=== PATIENT | female | born 1965 | race Caucasian/White ===

== ENCOUNTER 2016-08-03 09:16 | Inpatient (IN) | payer OTHER ==
[~2016-08-03] VITALS: Ht 165.1 cm; Wt 64.6 kg
[2016-08-03 11:05] LABS: BASOPHIL % 0.2 % (0-2); PLATELET COUNT 209 x10^3mcL (130-400); RED CELL DISTRIBUTION WIDTH 13.3 % (11.5-14.5)
[2016-08-03 11:29] LABS: CARBON DIOXIDE 28.7 mmol/L (21-32); CHLORIDE SERUM 105 mmol/L (98-107); CREATININE SERUM 0.8 mg/dL (0.6-1.0); GFR1 > 60 mL/min; GLUCOSE SERUM 102 mg/dL (74-106); POTASSIUM SERUM 3.8 mmol/L (3.5-5.1); SODIUM SERUM 140 mmol/L (136-145)
[2016-08-03 11:32] LABS: ALBUMIN 4.1 g/dL (3.4-5.0); ALKALINE PHOSPHATASE 71 U/L (46-116); ALT/SGPT 103 U/L (14-59); AST/SGOT 65 U/L (15-37); BILIRUBIN TOTAL 0.51 mg/dL (0.20-1.00); LIPASE 150 IU/L (73-393); TOTAL PROTEIN, SERUM 8.2 g/dL (6.4-8.2)
[2016-08-03] MEDS ORDERED: VENLAFAXINE150 M1 (11:41)
[2016-08-03] MEDS ORDERED: AMBIEN5 MG PO (11:42)
[2016-08-03 14:39] VITALS: BP 133/100
[2016-08-03 18:39] VITALS: BP 148/97
[2016-08-04 06:01] VITALS: BP 139/87
[2016-08-04 06:22] LABS: CALCIUM 8.4 mg/dL (8.5-10.1); CARBON DIOXIDE 27.7 mmol/L (21-32); CHLORIDE SERUM 107 mmol/L (98-107); CREATININE SERUM 0.8 mg/dL (0.6-1.0); GFR1 > 60 mL/min; GLUCOSE SERUM 103 mg/dL (74-106); SODIUM SERUM 142 mmol/L (136-145)
[2016-08-04 08:28] LABS: PLATELET COUNT 146 x10^3mcL (130-400); RED CELL DISTRIBUTION WIDTH 12.2 % (11.5-14.5)
[2016-08-04 08:37] LABS: BASOPHIL % 4.4 % (0-2)
[2016-08-04 10:16] VITALS: BP 143/99
[2016-08-04 12:25] LABS: microscopic required? YES; urine erythrocyte TRACE (NEGATIVE)
[2016-08-04 18:39] VITALS: BP 150/99
[2016-08-04 21:20] VITALS: BP 149/57
[2016-08-05] VITALS (7 sets, daily range): BP systolic 144–156; BP diastolic 86–103
[2016-08-05] MEDS ORDERED: KEFLEX500 M1 PO (13:34)
[2016-08-06 05:32] VITALS: BP 140/97
[2016-08-06 06:36] LABS: BASOPHIL % 0.2 % (0-2); PLATELET COUNT 195 x10^3mcL (130-400)
[2016-08-06 06:44] LABS: ALBUMIN 3.7 g/dL (3.4-5.0); ALKALINE PHOSPHATASE 56 U/L (46-116); ALT/SGPT 61 U/L (14-59); AST/SGOT 27 U/L (15-37); BILIRUBIN TOTAL 0.53 mg/dL (0.20-1.00); CALCIUM 8.5 mg/dL (8.5-10.1); CARBON DIOXIDE 27.4 mmol/L (21-32); CHLORIDE SERUM 110 mmol/L (98-107); CREATININE SERUM 0.9 mg/dL (0.6-1.0); GFR1 > 60 mL/min; GLUCOSE SERUM 136 mg/dL (74-106); SODIUM SERUM 150 mmol/L (136-145); TOTAL PROTEIN, SERUM 7.4 g/dL (6.4-8.2)
[2016-08-06 06:46] LABS: POTASSIUM SERUM 2.4 mmol/L (3.5-5.1)
[2016-08-06 10:10] VITALS: BP 141/82
[2016-08-06 15:40] LABS: CALCIUM 8.2 mg/dL (8.5-10.1); CARBON DIOXIDE 29.2 mmol/L (21-32); CHLORIDE SERUM 111 mmol/L (98-107); CREATININE SERUM 0.8 mg/dL (0.6-1.0); GFR1 > 60 mL/min; GLUCOSE SERUM 123 mg/dL (74-106); SODIUM SERUM 148 mmol/L (136-145)
[2016-08-06 15:43] LABS: POTASSIUM SERUM 2.4 mmol/L (3.5-5.1)
[2016-08-06 18:52] VITALS: BP 135/90
[2016-08-06 22:09] VITALS: BP 168/96
[2016-08-07 00:20] VITALS: BP 144/93
[2016-08-07 05:48] VITALS: BP 167/101
[2016-08-07 06:38] LABS: CALCIUM 8.6 mg/dL (8.5-10.1); CHLORIDE SERUM 105 mmol/L (98-107); CREATININE SERUM 0.7 mg/dL (0.6-1.0); GFR1 > 60 mL/min; GLUCOSE SERUM 126 mg/dL (74-106); MAGNESIUM 1.8 mg/dL (1.8-2.4); POTASSIUM SERUM 3.3 mmol/L (3.5-5.1); SODIUM SERUM 141 mmol/L (136-145)
[2016-08-07 06:51] VITALS: BP 156/89
[2016-08-07 12:57] VITALS: BP 156/89
[2016-08-07] MEDS ORDERED: LACTULOSE10 GM/152 PO (13:25)
[2016-08-07] MEDS ORDERED: SEN PO (13:25)
[2016-08-07] MEDS ORDERED: METOPROLOL SUCC50 M2 PO (13:25)
== END 2016-08-07 14:21 | disposition home or self-care (01) | DRG 247 ==
LOC: ED 09:16 → MU 12:12
PROVIDERS: Emergency Medicine; Internal Medicine Gastroenterology; ADMIT Internal Medicine Pulmonary Disease
PROC: 0DBN8ZZ Excision of Sigmoid Colon, Via Natural or Artificial Opening Endoscopic (ICD-10-PCS; principal; 2016-08-06 08:00)
DX: K56.41 Fecal impaction (principal); F79 Unspecified intellectual disabilities
CPT/HCPCS: 45378; J0696; J1200; J1610; J2060; J2250; J2310; J2405; J2765; J3010; J3480; J3490; J7030; J7042; Q0092

== ENCOUNTER 2017-03-02 16:13 | Inpatient (IN) | payer OTHER ==
[~2017-03-02] VITALS: Ht 165.1 cm; Wt 67.1 kg
[~2017-03-02 16:13] MED LIST: AMBIEN5 MG PO; KEFLEX500 M1 PO; LACTULOSE10 GM/152 PO; METOPROLOL SUCC50 M2 PO; SEN PO; VENLAFAXINE150 M1
[2017-03-02 18:34] LABS: BASOPHIL % 0.2 % (0-2); PLATELET COUNT 177 x10^3mcL (130-400); RED CELL DISTRIBUTION WIDTH 12.5 % (11.5-14.5)
[2017-03-02 18:47] LABS: CALCIUM 8.7 mg/dL (8.5-10.1); CARBON DIOXIDE 29.6 mmol/L (21-32); CHLORIDE SERUM 104 mmol/L (98-107); CREATININE SERUM 0.9 mg/dL (0.6-1.0); GFR1 > 60 mL/min; GLUCOSE SERUM 122 mg/dL (74-106); POTASSIUM SERUM 3.6 mmol/L (3.5-5.1); SODIUM SERUM 138 mmol/L (136-145)
[2017-03-02 18:51] LABS: ALBUMIN 3.9 g/dL (3.4-5.0); ALKALINE PHOSPHATASE 59 U/L (46-116); ALT/SGPT 33 U/L (14-59); AST/SGOT 22 U/L (15-37); BILIRUBIN TOTAL 0.24 mg/dL (0.20-1.00); LIPASE 170 IU/L (73-393); TOTAL PROTEIN, SERUM 8.2 g/dL (6.4-8.2)
[2017-03-02] MEDS ORDERED: SENNA8.6 M2 PO (20:35)
[2017-03-02] MEDS ORDERED: VENLAFAXINE HY150 MG PO (20:35)
[2017-03-02] MEDS ORDERED: LACTULOSE10 GM/152 PO (20:36)
[2017-03-02] MEDS ORDERED: MAPAP500 M2 PO (20:36)
[2017-03-02] MEDS ORDERED: ZESTRIL5 MG PO (20:37)
[2017-03-02 21:20] VITALS: BP 132/72
[2017-03-02 22:30] VITALS: BP 103/67
[2017-03-02 23:55] VITALS: BP 132/72
[2017-03-03 05:00] LABS: microscopic required? YES; urine erythrocyte NEGATIVE (NEGATIVE)
[2017-03-03 06:06] VITALS: BP 130/83
[2017-03-03 06:11] LABS: BASOPHIL % 0.1 % (0-2); PLATELET COUNT 138 x10^3mcL (130-400); RED CELL DISTRIBUTION WIDTH 12.9 % (11.5-14.5)
[2017-03-03 06:25] LABS: CALCIUM 8.1 mg/dL (8.5-10.1); CARBON DIOXIDE 26.5 mmol/L (21-32); CHLORIDE SERUM 108 mmol/L (98-107); CREATININE SERUM 0.8 mg/dL (0.6-1.0); GFR1 > 60 mL/min; GLUCOSE SERUM 90 mg/dL (74-106); POTASSIUM SERUM 3.6 mmol/L (3.5-5.1); SODIUM SERUM 142 mmol/L (136-145)
[2017-03-03 06:32] LABS: T3 TOTAL 1.2 ng/mL
[2017-03-03 06:56] LABS: FREE T4 1.17 ng/dL (0.76-1.46); FREE THYROXINE INDEX 3.6 ug/dL (1.4-4.5); T4(THYROXINE) 9.8 ug/dL (4.7-13.3)
[2017-03-03 09:29] VITALS: BP 149/86
[2017-03-03 17:27] VITALS: BP 143/88
[2017-03-03 21:42] VITALS: BP 128/87
[2017-03-04 09:27] VITALS: BP 144/93
[2017-03-04 13:11] VITALS: BP 115/43
[2017-03-04 18:20] VITALS: BP 137/90
[2017-03-04 21:26] VITALS: BP 140/91
[2017-03-05 05:46] VITALS: BP 109/71
[2017-03-05 06:08] LABS: ALBUMIN 3.5 g/dL (3.4-5.0); ALKALINE PHOSPHATASE 48 U/L (46-116); ALT/SGPT 30 U/L (14-59); AST/SGOT 16 U/L (15-37); BILIRUBIN TOTAL 0.56 mg/dL (0.20-1.00); CALCIUM 8.5 mg/dL (8.5-10.1); CARBON DIOXIDE 29.5 mmol/L (21-32); CHLORIDE SERUM 107 mmol/L (98-107); CREATININE SERUM 0.8 mg/dL (0.6-1.0); GFR1 > 60 mL/min; GLUCOSE SERUM 93 mg/dL (74-106); POTASSIUM SERUM 4.1 mmol/L (3.5-5.1); SODIUM SERUM 140 mmol/L (136-145); TOTAL PROTEIN, SERUM 7.3 g/dL (6.4-8.2)
[2017-03-05 06:18] LABS: BASOPHIL % 0.2 % (0-2); PLATELET COUNT 159 x10^3mcL (130-400); RED CELL DISTRIBUTION WIDTH 12.3 % (11.5-14.5)
[2017-03-05 09:59] VITALS: BP 132/85
[2017-03-05 18:16] VITALS: BP 125/87
[2017-03-05 21:43] VITALS: BP 135/83
[2017-03-06 05:51] VITALS: BP 114/63
[2017-03-06 07:11] LABS: BASOPHIL % 0.2 % (0-2); PLATELET COUNT 154 x10^3mcL (130-400); RED CELL DISTRIBUTION WIDTH 12.3 % (11.5-14.5)
[2017-03-06 07:28] LABS: CALCIUM 8.6 mg/dL (8.5-10.1); CARBON DIOXIDE 26.4 mmol/L (21-32); CHLORIDE SERUM 105 mmol/L (98-107); CREATININE SERUM 0.8 mg/dL (0.6-1.0); GFR1 > 60 mL/min; GLUCOSE SERUM 83 mg/dL (74-106); POTASSIUM SERUM 3.7 mmol/L (3.5-5.1); SODIUM SERUM 139 mmol/L (136-145)
[2017-03-06 11:25] VITALS: BP 137/79
[2017-03-06 17:04] VITALS: BP 111/80
[2017-03-06 21:27] VITALS: BP 111/70
[2017-03-07 05:15] VITALS: BP 105/63
[2017-03-07 09:53] VITALS: BP 112/76
[2017-03-07 14:22] VITALS: BP 114/77
[2017-03-07 17:43] VITALS: BP 130/80
[2017-03-07 21:01] VITALS: BP 112/71
[2017-03-08 06:04] VITALS: BP 103/62
[2017-03-08 07:02] LABS: PLATELET COUNT 165 x10^3mcL (130-400); RED CELL DISTRIBUTION WIDTH 12.7 % (11.5-14.5)
[2017-03-08 07:03] LABS: ALKALINE PHOSPHATASE 51 U/L (46-116); ALT/SGPT 24 U/L (14-59); AST/SGOT 42 U/L (15-37); BILIRUBIN TOTAL 0.67 mg/dL (0.20-1.00); CALCIUM 8.4 mg/dL (8.5-10.1); CARBON DIOXIDE 27.9 mmol/L (21-32); CHLORIDE SERUM 105 mmol/L (98-107); CREATININE SERUM 0.7 mg/dL (0.6-1.0); GFR1 > 60 mL/min; GLUCOSE SERUM 110 mg/dL (74-106); POTASSIUM SERUM 4.2 mmol/L (3.5-5.1); SODIUM SERUM 139 mmol/L (136-145); TOTAL PROTEIN, SERUM 6.4 g/dL (6.4-8.2)
[2017-03-08 07:04] LABS: ALBUMIN 2.6 g/dL (3.4-5.0)
[2017-03-08 07:13] LABS: BASOPHIL % 0 % (0-2)
[2017-03-08 09:19] VITALS: BP 112/78
[2017-03-08 16:41] VITALS: BP 113/72
[2017-03-08 21:41] VITALS: BP 134/72
[2017-03-09 05:59] VITALS: BP 102/65
[2017-03-09 09:29] VITALS: BP 114/72
[2017-03-09 16:33] VITALS: BP 103/58
[2017-03-09 17:09] LABS: microscopic required? NO
[2017-03-09 17:26] LABS: UA SPECIFIC GRAVITY 1.015 (1.005-1.035); urine erythrocyte NEGATIVE (NEGATIVE)
[2017-03-09 20:00] VITALS: BP 114/78
[2017-03-09 21:33] VITALS: BP 142/73
[2017-03-10 06:31] VITALS: BP 116/77
[2017-03-10 06:47] LABS: BASOPHIL % 0.2 % (0-2); PLATELET COUNT 185 x10^3mcL (130-400); RED CELL DISTRIBUTION WIDTH 12.4 % (11.5-14.5)
[2017-03-10 06:59] LABS: ALKALINE PHOSPHATASE 51 U/L (46-116); ALT/SGPT 34 U/L (14-59); AST/SGOT 25 U/L (15-37); BILIRUBIN TOTAL 0.47 mg/dL (0.20-1.00); CALCIUM 8.3 mg/dL (8.5-10.1); CARBON DIOXIDE 27.8 mmol/L (21-32); CHLORIDE SERUM 103 mmol/L (98-107); CREATININE SERUM 0.6 mg/dL (0.6-1.0); GFR1 > 60 mL/min; GLUCOSE SERUM 118 mg/dL (74-106); SODIUM SERUM 135 mmol/L (136-145); TOTAL PROTEIN, SERUM 6.4 g/dL (6.4-8.2)
[2017-03-10 07:04] LABS: ALBUMIN 2.4 g/dL (3.4-5.0)
[2017-03-10 09:51] VITALS: BP 115/77
[2017-03-10 17:13] VITALS: BP 112/81
[2017-03-10 21:34] VITALS: BP 119/75
[2017-03-11 06:03] VITALS: BP 113/69
[2017-03-11 06:34] LABS: ALBUMIN 2.7 g/dL (3.4-5.0); ALKALINE PHOSPHATASE 52 U/L (46-116); ALT/SGPT 28 U/L (14-59); AST/SGOT 18 U/L (15-37); BILIRUBIN TOTAL 0.39 mg/dL (0.20-1.00); CALCIUM 8.4 mg/dL (8.5-10.1); CARBON DIOXIDE 30.7 mmol/L (21-32); CHLORIDE SERUM 100 mmol/L (98-107); CREATININE SERUM 0.7 mg/dL (0.6-1.0); GFR1 > 60 mL/min; GLUCOSE SERUM 244 mg/dL (74-106); POTASSIUM SERUM 4.9 mmol/L (3.5-5.1); SODIUM SERUM 132 mmol/L (136-145); TOTAL PROTEIN, SERUM 6.3 g/dL (6.4-8.2)
[2017-03-11 06:38] LABS: BASOPHIL % 0.2 % (0-2); PLATELET COUNT 212 x10^3mcL (130-400); RED CELL DISTRIBUTION WIDTH 12.6 % (11.5-14.5)
[2017-03-11 09:22] VITALS: Ht 165.1 cm; Wt 67.1 kg
[2017-03-11 09:28] VITALS: BP 110/78
[2017-03-11 16:51] VITALS: BP 118/73
[2017-03-11 20:46] VITALS: BP 118/80
[2017-03-12 05:11] VITALS: BP 112/62
[2017-03-12 07:55] VITALS: BP 110/60
[2017-03-12 08:36] VITALS: BP 95/67
[2017-03-12 16:48] VITALS: BP 109/64
[2017-03-12 22:11] VITALS: BP 107/71
[2017-03-13 05:42] VITALS: BP 97/58
[2017-03-13 09:37] VITALS: BP 100/54
[2017-03-13 16:13] VITALS: BP 101/62
[2017-03-13 20:51] VITALS: BP 102/60
[2017-03-14 05:37] VITALS: BP 96/65
[2017-03-14 09:20] VITALS: BP 96/71
[2017-03-14 14:10] LABS: BASOPHIL % 0.1 % (0-2); PLATELET COUNT 257 x10^3mcL (130-400); RED CELL DISTRIBUTION WIDTH 12.3 % (11.5-14.5)
[2017-03-14 16:45] VITALS: BP 87/61
[2017-03-14 19:30] VITALS: BP 89/61
[2017-03-14 22:34] VITALS: BP 107/70
[2017-03-15 05:45] VITALS: BP 98/57
[2017-03-15 05:56] LABS: BASOPHIL % 0.2 % (0-2); PLATELET COUNT 258 x10^3mcL (130-400); RED CELL DISTRIBUTION WIDTH 12.3 % (11.5-14.5)
[2017-03-15 06:25] LABS: ALKALINE PHOSPHATASE 71 U/L (46-116); ALT/SGPT 34 U/L (14-59); AST/SGOT 23 U/L (15-37); BILIRUBIN DIRECT 0.04 mg/dL (0.0-0.2); BILIRUBIN TOTAL 0.29 mg/dL (0.20-1.00); CALCIUM 8.4 mg/dL (8.5-10.1); CARBON DIOXIDE 28.8 mmol/L (21-32); CHLORIDE SERUM 105 mmol/L (98-107); CREATININE SERUM 0.9 mg/dL (0.6-1.0); GFR1 > 60 mL/min; GLUCOSE SERUM 118 mg/dL (74-106); POTASSIUM SERUM 4.4 mmol/L (3.5-5.1); SODIUM SERUM 140 mmol/L (136-145); TOTAL PROTEIN, SERUM 6.7 g/dL (6.4-8.2)
[2017-03-15 06:33] LABS: ALBUMIN 2.7 g/dL (3.4-5.0)
[2017-03-15 10:11] VITALS: BP 111/56
[2017-03-15 17:25] VITALS: BP 117/77
[2017-03-15 18:05] VITALS: BP 117/77
== END 2017-03-15 20:30 | disposition short-term general hospital (02) | DRG 221 ==
LOC: ED 16:13 → MU 20:15
PROVIDERS: Emergency Medicine; Internal Medicine Pulmonary Disease; Surgery; ADMIT Internal Medicine Pulmonary Disease
PROC: 0D1N0Z4 Bypass Sigmoid Colon to Cutaneous, Open Approach (ICD-10-PCS; 2017-03-06)
PROC: 0DTF0ZZ Resection of Right Large Intestine, Open Approach (ICD-10-PCS; principal; 2017-03-06 08:00)
DX: K56.2 Volvulus (principal); K59.2 Neurogenic bowel, not elsewhere classified; F79 Unspecified intellectual disabilities; K59.09 Other constipation; G80.9 Cerebral palsy, unspecified; I10 Essential (primary) hypertension; K56.609 Unspecified intestinal obstruction, unspecified as to partial versus complete obstruction; E03.9 Hypothyroidism, unspecified
CPT/HCPCS: 82962; 83880; 84439; 90658; 97110-GP; 97116-GP; 97530-GP; J0694; J0696; J1170; J1335; J1630; J1885; J2060; J2270; J2405; J2704; J2710; J2765; J3010; J3480; J3490; J7030; J7040; J7042; J7120; Q0092; Q9967